=== PATIENT | female | born 1950 | race Caucasian/White ===

== ENCOUNTER 2018-06-18 15:58 | Emergency (ER) | payer OTHER ==
[~2018-06-18] VITALS: Ht 154.9 cm; Wt 64.0 kg
[2018-06-18] MEDS ORDERED: SODIUM CHLORIDE 0.9% 1,000 ML IV ONE (17:05)
[2018-06-18] MEDS ORDERED: FAMOTIDINE 20MG/2ML VIAL IV ONE (17:15)
[2018-06-18] MEDS ORDERED: METHYLPREDNISOLONE SOD SUCC 125 MG/2 ML VIAL IV ONE (17:15)
[2018-06-18 19:25] VITALS: BP 141/71
== END 2018-06-18 19:45 | disposition home or self-care (01) ==
LOC: ER 16:53
DX: T78.40XA Allergy, unspecified, initial encounter (principal); I10 Essential (primary) hypertension; F41.9 Anxiety disorder, unspecified; F17.200 Nicotine dependence, unspecified, uncomplicated; X58.XXXA Exposure to other specified factors, initial encounter; Z88.6 Allergy status to analgesic agent
CPT/HCPCS: 96374; 96375; 99283; J2930; J3490; J7030; Z7610